=== PATIENT | male | born 2000 | race Caucasian/White ===

== ENCOUNTER 2020-12-09 07:01 | Day surgery (SDC) | payer OTHER ==
[2020-12-09 07:31] VITALS: BMI 21.6
[2020-12-09] MEDS ORDERED: MIDAZOLAM HCL 2 MG/2 ML SINGLE DOSE VIAL ONE (08:42)
[2020-12-09] MEDS ORDERED: ROPIVACAINE HCL 0.5% 30ML VIAL ONE (08:45)
[2020-12-09] MEDS ORDERED: PROPOFOL 20 ML ONE (09:21)
[2020-12-09] MEDS ORDERED: ROCURONIUM BROMIDE 50 MG/5 ML SYRINGE ONE (09:22)
[2020-12-09] MEDS ORDERED: ACETAMINOPHEN 1000 MG/100 ML VIAL (NON FORMULARY) IVPB PRN (10:54)
[2020-12-09] MEDS ORDERED: traMADol HCL 50 MG TABLET PO PRN (10:54)
[2020-12-09] MEDS ORDERED: oxyCODONE HCL 5 MG TABLET PO PRN (10:54)
[2020-12-09] MEDS ORDERED: ACETAMINOPHEN INJECTION 100 ML IVPB ONE (11:46)
[2020-12-09] MEDS ORDERED: KETOROLAC TROMETHAMINE 30 MG/1 ML VIAL ONE (11:56)
[2020-12-09] MEDS ORDERED: KETOROLAC TROMETHAMINE 30 MG/1 ML VIAL IVPUSH ONE (12:04)
[2020-12-09 13:54] VITALS: TEMP 97.8
[2020-12-09 14:14] VITALS: BP 135/80; PULSE 75
== END 2020-12-09 15:29 | disposition home or self-care (01) ==
LOC: FASU 07:01
PROVIDERS: ATTEND Orthopaedic Surgery Sports Medicine
PROC: 0MRN47Z Replacement of Right Knee Bursa and Ligament with Autologous Tissue Substitute, Percutaneous Endoscopic Approach (ICD-10-PCS; principal; 2020-12-09 09:51)
PROC: 0LBQ0ZZ Excision of Right Knee Tendon, Open Approach (ICD-10-PCS; 2020-12-09 09:51)
PROC: 0SQC4ZZ Repair Right Knee Joint, Percutaneous Endoscopic Approach (ICD-10-PCS; 2020-12-09 09:51)
DX: S83.511A Sprain of anterior cruciate ligament of right knee, initial encounter (principal); S83.241A Other tear of medial meniscus, current injury, right knee, initial encounter; M65.9 Synovitis and tenosynovitis, unspecified; X58.XXXA Exposure to other specified factors, initial encounter; Y93.9 Activity, unspecified; Y92.9 Unspecified place or not applicable
CPT/HCPCS: 73560-TC-RT-FY; 88304-TC; 94760; J0131